=== PATIENT | female | born 1960 | race Caucasian/White ===

== ENCOUNTER 2017-04-03 08:02 | Emergency (ER) | payer BC ==
--- NOTE | 2017-04-05 08:22 | ER ---
ADMIT: 04/03/2017 RM/LOC: ER [facility] MR#: [id number] [facility] [address] [place] [id number] [address] K[address] [place] [address] Emergency Room Report SEX: F AGE: 56 : 1960 DATE: 04/03/2017 TIME: 0802 hours. PRIMARY CARE PHYSICIAN: Amilcar Phipps MD Please refer to my T-sheet for complete H and P. Briefly, the patient is a 56-year-old comes in last couple of days. She kind of had some chest heaviness maybe to her left arm, maybe a little shortness of breath. It has been constantly there for at least two days. She has never had any heart problems. Does not smoke. No family history of heart disease. She has never had a workup for it though. PHYSICAL EXAMINATION: VITAL SIGNS: Vital signs here, blood pressure 151/81, saturating 100%, temp 97.6, respirations 17, and pulse 106. GENERAL: No acute distress. HEENT: Grossly normal. LUNGS: Clear. HEART: Regular. ABDOMEN: Soft. SKIN: No rash. EMERGENCY DEPARTMENT COURSE: EKG was sinus rhythm, rate 90, no changes. Chest x-ray was negative. CBC normal. Chemistries normal. Cardiac enzymes all negative. We gave her 4 aspirin 81 mg, we tried nitroglycerin, did not help her pain. It was just a mild pain maybe a 1. On long discussion with her, she did not want to stay in the hospital. She would work this up outpatient. I talked to Dr. Baig, who is on-call for [place]. They will coordinate her workup this coming week. ASSESSMENT: Chest pain, atypical. Pain is very mild with a negative workup here. It has been constant pain for 2 days with negative enzymes and EKG that looks okay. PLAN: Call Dr. Phipps on Mondays, set up an appointment. Return if worse. An 81 mg aspirin a day. Titus Rowley MD/ shannon JOB #: [id number] CC: Titus Rowley MD, Attending Physician Amilcar Phipps MD, Family Physician
== END 2017-04-03 09:42 | disposition home or self-care (01) ==
LOC: ER 08:02
DX: R07.89 Other chest pain (principal)

== ENCOUNTER → 2017-04-08 | Outpatient (CLI) | payer BC | END | disposition home or self-care (01) | LOC: RAD.S 09:14 | DX: R41.82 Altered mental status, unspecified (principal); R20.9 Unspecified disturbances of skin sensation; M54.2 Cervicalgia; M47.892 Other spondylosis, cervical region ==

== ENCOUNTER → 2017-04-14 | Outpatient (CLI) | payer BC | END | disposition home or self-care (01) | LOC: RAD.S 04-07 14:34 | DX: Z12.31 Encounter for screening mammogram for malignant neoplasm of breast (principal); R92.8 Other abnormal and inconclusive findings on diagnostic imaging of breast ==

== ENCOUNTER 2017-04-29 16:15 | Emergency (ER) | payer BC ==
--- NOTE | 2017-05-08 18:10 | ER ---
ADMIT: 04/29/2017 RM/LOC: ER [facility] MR#: [id number] [id number] [address] [place] [address] Emergency Room Report SEX: F AGE: 56 : 1960 DATE: 04/29/2017 ADDENDUM: CHIEF COMPLAINT: Abdominal pain. HISTORY OF PRESENT ILLNESS: This is a 56-year-old female, who has been having this abdominal pain intermittently for the last 6 weeks, it is progressively worsening. Her CBC is normal except for slightly elevated white count of 10.5. Chemistries were normal. Lipase was normal. UA was normal. I did do an ultrasound, which showed one gallstone. I discharged her home. I told her to follow up with primary care physician this week to discuss having a possible HIDA scan or EGD. Also sent home with Carafate and omeprazole to see if that would help with possible gastritis or GERD. CLINICAL IMPRESSION: Abdominal pain. BRAULIO Mosqueda / Tre Black MD / shannon JOB #: [id number] CC: Tre Black MD, Attending Physician Amilcar Phipps MD, Family Physician
== END 2017-04-29 18:35 | disposition home or self-care (01) ==
LOC: ER 16:15
DX: R10.13 Epigastric pain (principal)

== ENCOUNTER → 2017-05-04 | Outpatient (CLI) | payer BC | END | disposition home or self-care (01) | LOC: RAD.S 07:56 | DX: R10.9 Unspecified abdominal pain (principal) ==